=== PATIENT | male | born 1970 | race Caucasian/White ===

== ENCOUNTER 2017-10-15 08:10 | Emergency (ER) | payer OTHER ==
[~2017-10-15] VITALS: Ht 188 cm; Wt 87.1 kg
[~2017-10-15 08:10] MED LIST: APAP500; CEPHALEXIN 500500 M2 PO; IBUPROFEN 200200 M1; MINOCIN100 MG; NOHOMEMEDICATIONS
[2017-10-15] MEDS ORDERED: IBU600 MG PO (08:20)
[2017-10-15] MEDS ORDERED: ASPIRIN325 PO (08:20)
[2017-10-15 08:49] VITALS: BP 135/87
[2017-10-15] MEDS ORDERED: ZOFRAN ODT4 MG DISSOLVE (08:49)
== END 2017-10-15 08:50 | disposition home or self-care (01) ==
LOC: M.ERS 08:10
DX: K40.20 Bilateral inguinal hernia, without obstruction or gangrene, not specified as recurrent (principal)

== ENCOUNTER 2018-03-01 01:28 | Emergency (ER) | payer OTHER ==
[~2018-03-01] VITALS: Ht 188 cm; Wt 87.1 kg
[~2018-03-01 01:28] MED LIST changes: +ASPIRIN325 PO; +IBU600 MG PO; +ZOFRAN ODT4 MG DISSOLVE
[2018-03-01 02:32] LABS: HEMATOCRIT 48.5 % (42.0-52.0); MCH 29.6 pg (26.0-34.0); MCHC 33.1 g/dL (28.0-37.0); MCV 89.5 fL (80.0-100.0); MPV 7.9 fl. (7.2-11.1); NUCLEATED RBCS 0 /100WBC; PLATELET COUNT* 329 thou/uL (150-400); RBC 5.42 mil/uL (4.50-6.00); RDW-CV 12.9 % (10.5-14.5); WBC 11.6 thou/uL (4.0-11.0)
[2018-03-01 02:48] LABS: CALCIUM 9.7 mg/dL (8.5-10.1); CREATININE 1.1 mg/dL (0.6-1.3)
[2018-03-01 02:55] LABS: TOTAL BILIRUBIN 0.3 mg/dL (<0.1-1.0); TOTAL PROTEIN 7.4 g/dL (6.4-8.2)
[2018-03-01 03:56] LABS: ABSOLUTE BASOPHILS 0.3 thou/uL (0.0-0.2); ABSOLUTE EOSINOPHILS 0.8 thou/uL (0.0-0.7); ABSOLUTE NEUTROPHILS 6.4 thou/uL (1.6-8.1); PLATELET ESTIMATE ADEQUATE
[2018-03-01 03:57] LABS: LARGE PLATELETS OCCASIONAL
[2018-03-01] MEDS ORDERED: PREDNISONE50 MG PO (04:29)
[2018-03-01] MEDS ORDERED: PROAIR HFA8.5 GM INH (04:29)
[2018-03-01] MEDS ORDERED: AMOXICILLIN 50500 M1 PO (04:29)
[2018-03-01 04:38] VITALS: BP 142/87
--- NOTE | 2018-03-01 10:25 | EKG ---
[place] [address] ELECTROCARDIOGRAM REPORT Name: JAIME SINGH Room: [facility] ([place], [place])#: [id number] Admission: 03/01/18 Attend Phys: Discharge: 03/01/18 Date of : 68 Report #: [id number] THIS REPORT FOR: //name// [facility] ED Test Date: 2018-03-01 Test Time: 02:41:17 Pat Name: JAIME SINGH Department: Room: Gender: M Sld Inclusion Teacher: : 1970 Requested By: Ana Christine Order Number: [id number] MD: Golden Steinberg Measurements Intervals [place] Rate: 67 P: 29 FL: 178 QRS: 75 QRSD: 94 T: 64 QT: 380 QTc: 401 Interpretive Statements Sinus rhythm ST elev, probable normal early repol pattern No previous ECG available for comparison Electronically Signed On 03-01-2018 10:25:00 SYSTEM SAFETY MANAGER by Golden Steinberg [email or web address] <ELECTRONICALLY SIGNED> By: Golden Steinberg MD, [facility] 03/01/18 1025 0241 [id number] Golden Steinberg MD, FAC /EPI
== END 2018-03-01 04:41 | disposition home or self-care (01) ==
LOC: M.ERS 01:28
PROVIDERS: Emergency Medicine
DX: J40 Bronchitis, not specified as acute or chronic (principal)

== ENCOUNTER 2018-03-22 23:15 | Inpatient (IN) | payer OTHER ==
[~2018-03-22] VITALS: Ht 188 cm; Wt 95.7 kg
[~2018-03-22 23:15] MED LIST changes: +AMOXICILLIN 50500 M1 PO; +PREDNISONE50 MG PO; +PROAIR HFA8.5 GM INH
[2018-03-22 23:23] VITALS: BP 151/92
[2018-03-23 00:08] LABS: HEMATOCRIT 45.2 % (42.0-52.0); HEMOGLOBIN 15.1 gm/dL (14.0-18.0); MCH 29.8 pg (26.0-34.0); MCHC 33.5 g/dL (28.0-37.0); MPV 7.8 fl. (7.2-11.1); NUCLEATED RBCS 0 /100WBC; PLATELET COUNT* 307 thou/uL (150-400); RBC 5.08 mil/uL (4.50-6.00); RDW-CV 12.8 % (10.5-14.5); WBC 9.4 thou/uL (4.0-11.0)
[2018-03-23 00:18] LABS: CALCIUM 9.1 mg/dL (8.5-10.1); CREATININE 1.1 mg/dL (0.6-1.3); POTASSIUM 3.6 mmol/L (3.5-5.1)
[2018-03-23 00:22] LABS: ALBUMIN 3.7 g/dL (3.4-5.0); TOTAL BILIRUBIN 0.3 mg/dL (<0.1-1.0); TOTAL PROTEIN 6.7 g/dL (6.4-8.2)
[2018-03-23 01:04] LABS: ABSOLUTE BASOPHILS 0.2 thou/uL (0.0-0.2); ABSOLUTE EOSINOPHILS 1.8 thou/uL (0.0-0.7); ABSOLUTE LYMPHOCYTES 4.1 thou/uL (0.8-5.3); ABSOLUTE MONOCYTES 0.7 thou/uL (0.0-1.2); ABSOLUTE NEUTROPHILS 2.6 thou/uL (1.6-8.1); PLATELET ESTIMATE ADEQUATE; TOXIC GRANULATION 1+
[2018-03-23 01:20] VITALS: BP 140/90
[2018-03-23 07:50] VITALS: BP 129/80
[2018-03-23 12:00] VITALS: BP 130/86
[2018-03-23 15:08] LABS: URINE BILIRUBIN NEGATIVE (Negative); URINE BLOOD 1+ (Negative); URINE CLARITY CLEAR; URINE COLOR YELLOW; URINE GLUCOSE-RANDOM 1+ (Negative); URINE KETONES NEGATIVE (Negative); URINE LEUKOCYTES NEGATIVE (Negative); URINE NITRITE NEGATIVE (Negative); URINE PROTEIN NEGATIVE (Negative); URINE SPECIFIC GRAVITY 1.025 (1.005-1.030); URINE UROBILINOGEN 0.2 E.U./dl (0.2-1.0)
[2018-03-23 15:37] LABS: BACTERIA 1-9 Few /HPF (None Seen); CASTS None Seen /LPF (None Seen); CRYSTALS None Seen /LPF (None Seen); MUCUS None Seen strn/LPF (None Seen); SQUAMOUS NONE SEEN /LPF (0-3); URINE RBC 0-2 Rare /HPF (0-2); URINE WBC 0-5 Rare /HPF (0-5)
[2018-03-23 16:00] VITALS: BP 128/83
[2018-03-23 20:45] VITALS: BP 140/68
[2018-03-24] VITALS: BP 112/75
[2018-03-24 04:00] VITALS: BP 118/73
[2018-03-24 05:16] LABS: CHOLESTEROL 181 mg/dL (<200); HDL CHOLESTEROL 48 mg/dL (>40); LDL CHOLESTEROL 123 mg/dL (<100); TC:HDL 3.8 Ratio (Not establshd); TRIGLYCERIDE 54 mg/dL (<150); VLDL 11 mg/dL (<40)
[2018-03-24 05:21] LABS: SERUM ASSESSMENT Clear
[2018-03-24 08:39] VITALS: BP 98/68
[2018-03-24 11:24] VITALS: BP 98/68
[2018-03-24] MEDS ORDERED: AZITHROMYCIN 2250 MG PO (11:34)
[2018-03-24] MEDS ORDERED: CEFDINIR300 MG PO (11:35)
[2018-03-24] MEDS ORDERED: MUCINEX600 MG PO (12:00)
[2018-03-24] MEDS ORDERED: VENTOLIN HFA 1818 GM INH (12:05)
== END 2018-03-24 12:27 | disposition home or self-care (01) | DRG 179 ==
LOC: M.ERS 23:15 → M.2W 03-23 00:26 → M.TBA-ER 03-23 00:26 → M.2W 03-23 01:21 → M.ORTHSURG 03-24 08:28
PROVIDERS: Internal Medicine; Nurse Practitioner Family; ADMIT Internal Medicine
DX: J15.6 Pneumonia due to other Gram-negative bacteria (principal); R73.9 Hyperglycemia, unspecified; D72.1 Eosinophilia; K46.9 Unspecified abdominal hernia without obstruction or gangrene; Z87.891 Personal history of nicotine dependence; Z28.21 Immunization not carried out because of patient refusal